=== PATIENT | male | born 1960 | race Hispanic/Latino ===

== ENCOUNTER 2020-10-30 09:28 | Emergency (ER) | payer SELFPAY ==
[2020-10-30 10:20] LABS: #Eosinphils 0.4 thou/uL (0.0-0.7); #Lymphocytes 1.4 thou/uL (1.20-3.40); #Monocytes 0.4 thou/uL (0.11-0.59); #Neutrophils 4.5 thou/uL (1.40-6.50); %Basophils 0.6 % (0.0-1.0); %Eosinophils 5.2 % (0.0-10.0); %Lymphocytes 20.7 % (21.0-51.0); %Monocytes 6.3 % (0.0-10.0); %Neutrophils 67.2 % (42.0-75.0); Hemoglobin 10.4 g/dL (14.0-18.0); Mean Corpuscular HGB CONC 31.8 g/dL (32.0-36.0); Mean Corpuscular Hemoglobin 30.8 pg (27.0-31.0); Mean Corpuscular Volume 96.7 fL (78.0-98.0); Platelet Count 249 thou/uL (130-400); RBC Distribution Width 13.7 % (11.5-14.5); Red Blood Cell (RBC) Count 3.37 mill/uL (4.70-6.10); White Blood Cell (WBC) Count 6.7 thou/uL (4.8-10.8)
[2020-10-30 10:39] LABS: ALT (SGPT) 20 U/L (8-55); AST (SGOT) 19 U/L (5-34); Albumin 3.1 g/dL (3.4-4.8); Alkaline Phosphatase 124 U/L (40-110); Anion Gap 12 mmol/L (10-20); BUN (Urea Nitrogen) 23 mg/dL (8.4-25.7); Bilirubin, Total 0.7 mg/dL (0.2-1.2); Calc. Creatinine Clearance 0 mL/min (70-130); Calcium 8.6 mg/dL (7.8-10.44); Carbon Dioxide 24 mmol/L (23-31); Chloride 105 mmol/L (98-107); Globulin 4.5 g/dL (2.4-3.5); Glucose 191 mg/dL (80-115); Potassium 4.9 mmol/L (3.5-5.1); Protein, Total 7.6 g/dL (5.8-8.1); Sodium 136 mmol/L (136-145)
[2020-10-30] MEDS ORDERED: Insulin Regular 300 UNITS/3 ML VIAL ONE (10:45)
[2020-10-30] MEDS ORDERED: Bacitracin 1 PK ONE (10:45)
== END 2020-10-30 11:30 | disposition home or self-care (01) ==
LOC: ERS 09:28
DX: S88.012A Complete traumatic amputation at knee level, left lower leg, initial encounter (principal); E11.9 Type 2 diabetes mellitus without complications; I10 Essential (primary) hypertension; Z79.4 Long term (current) use of insulin; Z79.82 Long term (current) use of aspirin; Z79.899 Other long term (current) drug therapy
CPT/HCPCS: 36415; 80053; 85025; 99283; J1815

== ENCOUNTER 2021-04-10 19:20 | Inpatient (IN) | payer SELFPAY ==
[2021-04-10 20:18] LABS: #Basophils 0.1 thou/uL (0.0-0.2); #Eosinphils 0.2 thou/uL (0.0-0.7); #Lymphocytes 1.8 thou/uL (1.20-3.40); #Monocytes 0.6 thou/uL (0.11-0.59); #Neutrophils 7.7 thou/uL (1.40-6.50); %Basophils 0.5 % (0.0-1.0); %Eosinophils 2.1 % (0.0-10.0); %Lymphocytes 17.7 % (21.0-51.0); %Monocytes 5.6 % (0.0-10.0); %Neutrophils 74.1 % (42.0-75.0); Hemoglobin 13.5 g/dL (14.0-18.0); Mean Corpuscular Hemoglobin 31.1 pg (27.0-31.0); Mean Corpuscular Volume 91.7 fL (78.0-98.0); Mean Platelet Volume 8.4 fL (7.4-10.4); Platelet Count 201 thou/uL (130-400); RBC Distribution Width 13.4 % (11.5-14.5); Red Blood Cell (RBC) Count 4.33 mill/uL (4.70-6.10); White Blood Cell (WBC) Count 10.4 thou/uL (4.8-10.8)
[2021-04-10 20:41] LABS: ALT (SGPT) 18 U/L (8-55); AST (SGOT) 17 U/L (5-34); Albumin 3.4 g/dL (3.4-4.8); Alkaline Phosphatase 82 U/L (40-110); Anion Gap 10 mmol/L (10-20); BUN (Urea Nitrogen) 20 mg/dL (8.4-25.7); Bilirubin, Total 1.4 mg/dL (0.2-1.2); CK (CPK) 187 U/L (30-200); Calc. Creatinine Clearance 0 mL/min (70-130); Calcium 9.2 mg/dL (7.8-10.44); Carbon Dioxide 27 mmol/L (23-31); Chloride 102 mmol/L (98-107); Globulin 3.4 g/dL (2.4-3.5); Glucose 319 mg/dL (80-115); Potassium 4.2 mmol/L (3.5-5.1); Protein, Total 6.8 g/dL (5.8-8.1); Sodium 135 mmol/L (136-145)
[2021-04-10 21:06] LABS: Bilirubin Negative (Negative); Blood, Urine Negative (Negative); Clarity Clear (Clear); Glucose, Urine (Dipstick) Greater than 1000 mg/dL (Negative); Ketone, Urine Negative (Negative); Leukocyte Negative Leu/uL (Negative); Nitrite Negative (Negative); Protein, Urine (Dipstick) 100 mg/dL (Neg-Trace); RBC/HPF 0-3 HPF (0-3); Specific Gravity, Urine 1.022 (1.002-1.036); Squamous Epithelial None Seen HPF (0-3); Urobilinogen Normal mg/dL (Less than 2); WBC/HPF 0-3 HPF (0-3)
[2021-04-10] MEDS ORDERED: Cefepime 2 GM VIAL ONE (21:16)
[2021-04-10 21:17] LABS: Bacteria/HPF 3+ HPF (None Seen)
[2021-04-10] MEDS ORDERED: Vancomycin 1 GM/200 ML BAG ONE (21:23)
[2021-04-10] MEDS ORDERED: Calcium Carbonate 500 MG ChewTAB PO PRN (22:11)
[2021-04-10] MEDS ORDERED: Senokot S 8.6-50 MG TAB PO PRN (22:11)
[2021-04-10] MEDS ORDERED: Acetaminophen 650 MG Suppository PR PRN (22:11)
[2021-04-10] MEDS ORDERED: Bisacodyl 5 MG TAB PO PRN (22:11)
[2021-04-10] MEDS ORDERED: Bisacodyl 10 MG SUPP PR PRN (22:11)
[2021-04-10] MEDS ORDERED: Dextrose 5% in Water 1,000 ML IV PRN (22:18)
[2021-04-10] MEDS ORDERED: Dextrose 50% Abboject 50 ML SYRINGE SLOW IVP PRN (22:18)
[2021-04-10] MEDS: HumaLOG 300 UNITS/3 ML VIAL SC PRN (23:14)
[2021-04-10] MEDS: Acetaminophen 325 MG TAB PO PRN (23:14)
[2021-04-11] MEDS ORDERED: Vancomycin 1 GM in Premix Bag 1 BAG IVPB SCH (01:30)
[2021-04-11 06:23] LABS: #Basophils 0.1 thou/uL (0.0-0.2); #Eosinphils 0.3 thou/uL (0.0-0.7); #Lymphocytes 1.4 thou/uL (1.20-3.40); #Monocytes 0.9 thou/uL (0.11-0.59); #Neutrophils 7.3 thou/uL (1.40-6.50); %Basophils 0.5 % (0.0-1.0); %Eosinophils 2.9 % (0.0-10.0); %Lymphocytes 14.5 % (21.0-51.0); %Monocytes 8.7 % (0.0-10.0); %Neutrophils 73.5 % (42.0-75.0); Hemoglobin 13.4 g/dL (14.0-18.0); Mean Corpuscular HGB CONC 33.6 g/dL (32.0-36.0); Mean Corpuscular Volume 92.4 fL (78.0-98.0); Mean Platelet Volume 8.2 fL (7.4-10.4); Platelet Count 194 thou/uL (130-400); RBC Distribution Width 13.4 % (11.5-14.5); Red Blood Cell (RBC) Count 4.33 mill/uL (4.70-6.10); White Blood Cell (WBC) Count 9.9 thou/uL (4.8-10.8)
[2021-04-11 06:40] LABS: Anion Gap 11 mmol/L (10-20); BUN (Urea Nitrogen) 14 mg/dL (8.4-25.7); Calc. Creatinine Clearance 130 mL/min (70-130); Calcium 8.8 mg/dL (7.8-10.44); Carbon Dioxide 26 mmol/L (23-31); Chloride 105 mmol/L (98-107); Glucose 200 mg/dL (80-115); Potassium 3.7 mmol/L (3.5-5.1); Sodium 138 mmol/L (136-145)
[2021-04-11 07:05] LABS: Hemoglobin A1c 9.6 % (4.0-6.0)
[2021-04-11] MEDS ORDERED: Iopamidol-370 76% 500 ML 1 ML ONE (08:50)
[2021-04-11] MEDS: Cefepime 2 GM in Sodium Chloride 0.9% 100 ML IVPB SCH ×2 (08:55→21:09)
[2021-04-11] MEDS: Enoxaparin Sodium 40 MG/0.4 ML SYRINGE SC SCH (08:55)
[2021-04-11] MEDS ORDERED: FLU VACC QS2021-22(6MOS UP)/PF 60 MCG/0.5 ML SYRINGE IM ONE (09:00)
[2021-04-11] MEDS: HumuLIN 70/30 (300 UNITS/3 ML VIAL) SC SCH ×2 (09:07→16:17)
[2021-04-11] MEDS: HumaLOG 300 UNITS/3 ML VIAL SC PRN ×2 (12:29→16:17)
[2021-04-11 13:38] VITALS: BMI 31.8
[2021-04-11 15:23] LABS: SARS-CoV-2 PCR by NAA Not Detected (NotDetected)
[2021-04-11] MEDS: Acetaminophen 325 MG TAB PO PRN (16:20)
[2021-04-12 06:48] LABS: #Basophils 0.1 thou/uL (0.0-0.2); #Eosinphils 0.3 thou/uL (0.0-0.7); #Lymphocytes 1.9 thou/uL (1.20-3.40); #Monocytes 0.8 thou/uL (0.11-0.59); #Neutrophils 6.9 thou/uL (1.40-6.50); %Basophils 0.6 % (0.0-1.0); %Eosinophils 3.2 % (0.0-10.0); %Lymphocytes 18.9 % (21.0-51.0); %Monocytes 7.6 % (0.0-10.0); %Neutrophils 69.7 % (42.0-75.0); Mean Corpuscular HGB CONC 33.6 g/dL (32.0-36.0); Mean Corpuscular Hemoglobin 31.1 pg (27.0-31.0); Mean Corpuscular Volume 92.6 fL (78.0-98.0); Mean Platelet Volume 8.1 fL (7.4-10.4); Platelet Count 189 thou/uL (130-400); RBC Distribution Width 13.3 % (11.5-14.5); Red Blood Cell (RBC) Count 4.18 mill/uL (4.70-6.10); White Blood Cell (WBC) Count 9.8 thou/uL (4.8-10.8)
[2021-04-12 07:13] LABS: Anion Gap 5 mmol/L (10-20); BUN (Urea Nitrogen) 14 mg/dL (8.4-25.7); Calc. Creatinine Clearance 133 mL/min (70-130); Calcium 8.9 mg/dL (7.8-10.44); Carbon Dioxide 30 mmol/L (23-31); Chloride 106 mmol/L (98-107); Glucose 152 mg/dL (80-115); Potassium 3.8 mmol/L (3.5-5.1); Sodium 137 mmol/L (136-145)
[2021-04-12] MEDS: HumuLIN 70/30 (300 UNITS/3 ML VIAL) SC SCH ×2 (09:11→17:38)
[2021-04-12] MEDS: Cefepime 2 GM in Sodium Chloride 0.9% 100 ML IVPB SCH (09:26)
[2021-04-12] MEDS: Enoxaparin Sodium 40 MG/0.4 ML SYRINGE SC SCH (09:27)
[2021-04-12 11:27] LABS: Vancomycin, Trough 14.4 ug/mL
[2021-04-12] MEDS: HumaLOG 300 UNITS/3 ML VIAL SC PRN (20:58)
[2021-04-13] MEDS: HumaLOG 300 UNITS/3 ML VIAL SC PRN (06:19)
[2021-04-13 07:07] LABS: #Basophils 0.1 thou/uL (0.0-0.2); #Eosinphils 0.3 thou/uL (0.0-0.7); #Lymphocytes 1.5 thou/uL (1.20-3.40); #Monocytes 0.6 thou/uL (0.11-0.59); #Neutrophils 6.2 thou/uL (1.40-6.50); %Basophils 0.7 % (0.0-1.0); %Eosinophils 3.4 % (0.0-10.0); %Lymphocytes 16.8 % (21.0-51.0); %Monocytes 7.4 % (0.0-10.0); %Neutrophils 71.7 % (42.0-75.0); Hemoglobin 13.3 g/dL (14.0-18.0); Mean Corpuscular HGB CONC 32.6 g/dL (32.0-36.0); Mean Corpuscular Hemoglobin 30.2 pg (27.0-31.0); Mean Corpuscular Volume 92.6 fL (78.0-98.0); Mean Platelet Volume 8.5 fL (7.4-10.4); Platelet Count 211 thou/uL (130-400); RBC Distribution Width 13.2 % (11.5-14.5); White Blood Cell (WBC) Count 8.7 thou/uL (4.8-10.8)
[2021-04-13 07:32] LABS: Anion Gap 12 mmol/L (10-20); BUN (Urea Nitrogen) 11 mg/dL (8.4-25.7); Calc. Creatinine Clearance 137 mL/min (70-130); Calcium 8.6 mg/dL (7.8-10.44); Carbon Dioxide 25 mmol/L (23-31); Chloride 104 mmol/L (98-107); Glucose 217 mg/dL (80-115); Potassium 4.1 mmol/L (3.5-5.1); Sodium 137 mmol/L (136-145)
[2021-04-13] MEDS: Enoxaparin Sodium 40 MG/0.4 ML SYRINGE SC SCH (09:20)
[2021-04-13] MEDS: HumuLIN 70/30 (300 UNITS/3 ML VIAL) SC SCH ×2 (09:21→18:29)
[2021-04-13] MEDS ORDERED: metFORMIN 500 MG TAB PO SCH ×2 (11:00→17:00)
[2021-04-13 18:32] VITALS: BP 136/83; TEMP 98
[2021-04-13] MEDS ORDERED: Sulfameth/Trimethoprim DS 800-160mg TAB PO SCH (21:00)
== END 2021-04-13 18:10 | disposition home or self-care (01) | DRG 638 ==
LOC: ERS 19:20 → T4-B 21:18 → INTOOBSV 21:18 → OBSVTOIN 04-11 14:57
PROVIDERS: ADMIT Emergency Medicine; ATTEND Emergency Medicine
DX: E11.628 Type 2 diabetes mellitus with other skin complications (principal); L03.115 Cellulitis of right lower limb; Z20.822 Contact with and (suspected) exposure to COVID-19; E11.65 Type 2 diabetes mellitus with hyperglycemia; E11.51 Type 2 diabetes mellitus with diabetic peripheral angiopathy without gangrene; I10 Essential (primary) hypertension; Z79.4 Long term (current) use of insulin; Z89.512 Acquired absence of left leg below knee
CPT/HCPCS: 36415; 36416; 75635; 80048; 80053; 80202; 81003; 81015; 82550; 83036; 83605; 83880; 85025; 85652; 86140; 87040; 87070; 87077; 87086; 87186; 87205; 93005; 96365; 96367; 96372; 96376; G0378; J0692; J1650; J1815; J3370; J3490; J7030; Q9967; U0003; U0005

== ENCOUNTER 2022-05-18 13:28 | Emergency (ER) | payer SELFPAY ==
[2022-05-18 14:10] LABS: #Eosinphils 0.2 thou/uL (0.0-0.7); #Lymphocytes 1.4 thou/uL (1.20-3.40); #Monocytes 0.4 thou/uL (0.11-0.59); #Neutrophils 3.9 thou/uL (1.40-6.50); %Basophils 0.2 % (0.0-1.0); %Eosinophils 3.6 % (0.0-10.0); %Lymphocytes 23.7 % (21.0-51.0); %Monocytes 6.8 % (0.0-10.0); %Neutrophils 65.8 % (42.0-75.0); Hemoglobin 13.1 g/dL (14.0-18.0); Mean Corpuscular HGB CONC 33.4 g/dL (32.0-36.0); Mean Corpuscular Hemoglobin 30.7 pg (27.0-31.0); Mean Corpuscular Volume 91.9 fl (78.0-98.0); Mean Platelet Volume 8.6 fL (7.4-10.4); Platelet Count 191 10x3/uL (130-400); RBC Distribution Width 12.5 % (11.5-14.5); Red Blood Cell (RBC) Count 4.27 mill/uL (4.70-6.10); White Blood Cell (WBC) Count 5.9 10x3/uL (4.8-10.8)
[2022-05-18 14:36] LABS: ALT (SGPT) 16 U/L (8-55); AST (SGOT) 19 U/L (5-34); Albumin 3.1 g/dL (3.4-4.8); Alkaline Phosphatase 78 U/L (40-110); Anion Gap 13 mmol/L (10-20); BUN (Urea Nitrogen) 16 mg/dL (8.4-25.7); Bilirubin, Total 1.5 mg/dL (0.2-1.2); Calc. Creatinine Clearance 0 mL/min (70-130); Calcium 8.3 mg/dL (7.8-10.44); Carbon Dioxide 21 mmol/L (23-31); Chloride 105 mmol/L (98-107); Estimated GFR 68; Glucose 334 mg/dL (80-115); Potassium 3.8 mmol/L (3.5-5.1); Protein, Total 7.1 g/dL (5.8-8.1); Sodium 135 mmol/L (136-145)
== END 2022-05-18 16:39 | disposition home or self-care (01) ==
LOC: ERS 13:28
DX: L03.115 Cellulitis of right lower limb (principal); E11.622 Type 2 diabetes mellitus with other skin ulcer; L97.819 Non-pressure chronic ulcer of other part of right lower leg with unspecified severity; I10 Essential (primary) hypertension; Z79.4 Long term (current) use of insulin
CPT/HCPCS: 36415; 80053; 83605; 85025; 87040; 99283

== ENCOUNTER 2023-05-16 00:49 | Emergency (ER) | payer OTHER, SELFPAY ==
[2023-05-16 03:08] LABS: #Eosinphils 0.5 thou/uL (0.0-0.7); #Monocytes 0.6 thou/uL (0.11-0.59); #Neutrophils 3.9 thou/uL (1.40-6.50); %Basophils 0.6 % (0.0-1.0); %Eosinophils 6.5 % (0.0-10.0); %Lymphocytes 26.7 % (21.0-51.0); %Monocytes 8.8 % (0.0-10.0); Hematocrit 35.6 % (42.0-52.0); Hemoglobin 11.9 g/dL (14.0-18.0); Mean Corpuscular HGB CONC 33.4 g/dL (32.0-36.0); Mean Corpuscular Hemoglobin 29.8 pg (27.0-31.0); Mean Corpuscular Volume 89.2 fl (78.0-98.0); Mean Platelet Volume 10.8 fL (7.4-10.4); Platelet Count 228 10x3/uL (130-400); Red Blood Cell (RBC) Count 3.99 mill/uL (4.70-6.10); White Blood Cell (WBC) Count 6.9 10x3/uL (4.8-10.8)
[2023-05-16 03:36] LABS: ALT (SGPT) 23 U/L (8-55); AST (SGOT) 25 U/L (5-34); Albumin 3.1 g/dL (3.4-4.8); Alkaline Phosphatase 94 U/L (40-110); Anion Gap 15 mmol/L (10-20); BUN (Urea Nitrogen) 18 mg/dL (8.4-25.7); Bilirubin, Total 0.7 mg/dL (0.2-1.2); Calc. Creatinine Clearance 0 mL/min (70-130); Carbon Dioxide 21 mmol/L (23-31); Chloride 105 mmol/L (98-107); Estimated GFR 58; Globulin 3.3 g/dL (2.4-3.5); Glucose 236 mg/dL (80-115); Potassium 3.6 mmol/L (3.5-5.1); Protein, Total 6.4 g/dL (5.8-8.1); Sodium 137 mmol/L (136-145)
[2023-05-16 03:37] LABS: Lipase 25 U/L (8-78); Magnesium 1.7 mg/dL (1.6-2.6)
[2023-05-16 05:01] LABS: Bacteria/HPF 4+ HPF (None Seen); Bilirubin Negative (Negative); Blood, Urine 1+ (Negative); CAUTI Indications for Culture Pelvic or flank pain; Clarity Turbid (Clear); Glucose, Urine (Dipstick) 300 mg/dL (Negative); Ketone, Urine Negative (Negative); Leukocyte 500 Leu/uL (Negative); Nitrite Negative (Negative); Protein, Urine (Dipstick) 300 mg/dL (Neg-Trace); RBC/HPF 0-3 HPF (0-3); Specific Gravity, Urine 1.009 (1.002-1.036); Squamous Epithelial None Seen HPF (0-3); WBC/HPF Greater than 50 HPF (0-3); pH, Urine 6.5 (5.0-9.0)
[2023-05-16 05:03] LABS: Urine Culture Reflex Yes Yes
[2023-05-16] MEDS ORDERED: Sodium Chloride 0.9% 100 ML ONE (05:15)
[2023-05-16] MEDS ORDERED: cefTRIAXone (ROCEPHIN) 1 GM VIAL ONE (05:15)
== END 2023-05-16 05:49 | disposition home or self-care (01) ==
LOC: ERS 00:49
DX: N30.00 Acute cystitis without hematuria (principal); R14.0 Abdominal distension (gaseous); E11.51 Type 2 diabetes mellitus with diabetic peripheral angiopathy without gangrene; I10 Essential (primary) hypertension
CPT/HCPCS: 36415; 71045; 74177; 80053; 81001; 83605; 83690; 83735; 83880; 84484; 85025; 87077; 87086; 93005; 96365; J0696; J3490

== ENCOUNTER 2024-11-24 14:39 | Inpatient (IN) | payer OTHER ==
[2024-11-24] MEDS ORDERED: Melatonin 3 MG TAB PO PRN (17:01)
[2024-11-24] MEDS ORDERED: Glucagon 1 MG/ML KIT IM PRN (17:35)
[2024-11-24] MEDS ORDERED: Dextrose 50% Abboject 50 ML SYRINGE SLOW IVP PRN (17:35)
[2024-11-24] MEDS: Acetaminophen 325 MG TAB PO SCH (17:57)
[2024-11-24] MEDS: hydrALAZINE 20 MG/ML VIAL SLOW IVP PRN (18:13)
[2024-11-24 18:17] LABS: Iron 41 ug/dL (65-175); Iron Binding Capacity, Total 254 mcg/dL (261-462)
[2024-11-24 18:18] LABS: Hep B Surf Ag NONREACTIVE S/CO (NonReactive); Hep C IgG Ab NONREACTIVE S/CO (NonReactive); Hep C Index 0.18 S/CO (0-0.79)
[2024-11-24 19:11] LABS: Ferritin 229.33 ng/mL (22-322)
[2024-11-24 20:36] VITALS: BMI 31.4
[2024-11-24] MEDS: Heparin 5,000 UNITS/ML VIAL SC SCH (21:09)
[2024-11-24 22:39] LABS: Bacteria/HPF None Seen HPF (None Seen); Glucose, Urine (Dipstick) 100 mg/dL (Negative); Leukocyte Negative Leu/uL (Negative); Protein, Urine (Dipstick) 100 mg/dL (Neg-Trace); RBC/HPF 0-3 HPF (0-3); Specific Gravity, Urine 1.012 (1.002-1.036); WBC/HPF 0-3 HPF (0-3)
[2024-11-24 23:13] LABS: Protein, Urine Random Quant 232.0 mg/dL (1-14)
[2024-11-24 23:53] LABS: Anion Gap 12 mmol/L (10-20); BUN (Urea Nitrogen) 45 mg/dL (8.4-25.7); Calc. Creatinine Clearance 29 mL/min (70-130); Calcium 7.8 mg/dL (7.8-10.44); Carbon Dioxide 22 mmol/L (23-31); Chloride 108 mmol/L (98-107); Glucose 120 mg/dL (80-115); Potassium 4.7 mmol/L (3.5-5.1); Sodium 137 mmol/L (136-145)
[2024-11-25 05:06] LABS: #Basophils 0.04 10x3/uL (0.0-0.2); #Eosinophils 0.45 10x3/uL (0.0-0.7); #Monocytes 0.45 10x3/uL (0.11-0.59); #Neutrophils 5.55 10x3/uL (1.40-6.50); %Basophils 0.5 % (0.0-1.0); %Eosinophils 5.5 % (0.0-10.0); %Lymphocytes 20.3 % (21.0-51.0); %Monocytes 5.5 % (0.0-10.0); %Neutrophils 67.5 % (42.0-75.0); Hematocrit 28.6 % (42.0-52.0); Hemoglobin 9.3 g/dL (14.0-18.0); Mean Corpuscular Hemoglobin 30.5 pg (27.0-31.0); Mean Corpuscular Volume 93.8 fL (78.0-98.0); Platelet Count 225 10x3/uL (130-400); Red Blood Cell (RBC) Count 3.05 mill/uL (4.70-6.10); White Blood Cell (WBC) Count 8.22 10x3/uL (4.8-10.8)
[2024-11-25 05:14] LABS: Albumin 3.0 g/dL (3.1-4.5); Anion Gap 14 mmol/L (10-20); BUN (Urea Nitrogen) 44 mg/dL (8.4-25.7); BUN/Creatinine Ratio 11.89; Calc. Creatinine Clearance 30 mL/min (70-130); Calcium 8.0 mg/dL (7.8-10.44); Carbon Dioxide 22 mmol/L (23-31); Chloride 108 mmol/L (98-107); Glucose 109 mg/dL (80-115); Potassium 4.8 mmol/L (3.5-5.1); Sodium 139 mmol/L (136-145)
[2024-11-25] MEDS: NIFEdipine XL 30 MG ER.TAB PO SCH ×2 (09:29→13:57)
[2024-11-25] MEDS: Insulin NPH Human Isophane 100 UNITS/ML (10 ML VIAL) SQ SCH (09:33)
[2024-11-25] MEDS: Aspirin 81 mg Enteric Coated Tablet PO SCH (09:34)
[2024-11-26 05:18] LABS: #Basophils 0.05 10x3/uL (0.0-0.2); #Eosinophils 0.45 10x3/uL (0.0-0.7); #Monocytes 0.50 10x3/uL (0.11-0.59); #Neutrophils 5.99 10x3/uL (1.40-6.50); %Basophils 0.6 % (0.0-1.0); %Eosinophils 5.3 % (0.0-10.0); %Lymphocytes 17.3 % (21.0-51.0); %Monocytes 5.9 % (0.0-10.0); %Neutrophils 70.5 % (42.0-75.0); Hematocrit 29.0 % (42.0-52.0); Hemoglobin 9.3 g/dL (14.0-18.0); Mean Corpuscular Hemoglobin 30.1 pg (27.0-31.0); Mean Corpuscular Volume 93.9 fL (78.0-98.0); Platelet Count 249 10x3/uL (130-400); Red Blood Cell (RBC) Count 3.09 mill/uL (4.70-6.10); White Blood Cell (WBC) Count 8.49 10x3/uL (4.8-10.8)
[2024-11-26 05:25] LABS: Anion Gap 13 mmol/L (10-20); BUN (Urea Nitrogen) 42 mg/dL (8.4-25.7); Calc. Creatinine Clearance 30 mL/min (70-130); Calcium 7.9 mg/dL (7.8-10.44); Carbon Dioxide 21 mmol/L (23-31); Chloride 110 mmol/L (98-107); Glucose 113 mg/dL (80-115); Potassium 4.6 mmol/L (3.5-5.1); Sodium 139 mmol/L (136-145)
[2024-11-26] MEDS: NIFEdipine XL 60 MG ER.TAB PO SCH (08:59)
[2024-11-26] MEDS: Calcitriol 0.25 MCG CAP PO SCH (08:59)
[2024-11-26 12:32] VITALS: BP 160/89; TEMP 98.9
[2024-11-27 12:35] LABS: ANA Symphony (Qualitative) Negative (Negative); ANA Symphony (Quantitative) 0.3 Ratio (< 0.7 Negative); dsDNA IgG Antibody 1.3 IU/mL (<10 Negative)
[2024-11-27 14:38] LABS: Albumin-Ur 60.9 % (.); Alpha 1 - Ur 5.1 % (.); Alpha 2 - Ur 5.9 % (.); Beta-Ur 12.9 % (.); Gamma-Ur 15.2 % (.); M-Spike,% Not Observed % (Not Observed); Protein, Urine 193.2 mg/dL (Not Estab.)
[2024-11-27 15:14] LABS: A/G Ratio 0.8 (0.7-1.7); Albumin 3.1 g/dL (2.9-4.4); Alpha 1 0.2 g/dL (0.0-0.4); Alpha 2 0.8 g/dL (0.4-1.0); Beta 1.0 g/dL (0.7-1.3); Gamma 1.8 g/dL (0.4-1.8); Globulin, Total 3.9 g/dL (2.2-3.9); M-Spike Not Observed g/dL (Not Observed)
[2024-11-30 13:38] LABS: Myeloperoxidase AutoAbs <0.2 units (0.0-0.9); Proteinase-3 AutoAbs Less than 0.2 units (0.0-0.9)
== END 2024-11-26 12:15 | disposition home or self-care (01) | DRG 684 ==
LOC: OBS 14:39 → MSONC 11-25 16:37
PROVIDERS: ADMIT Hospitalist; ATTEND Hospitalist
DX: N17.9 Acute kidney failure, unspecified (principal); E78.5 Hyperlipidemia, unspecified; E11.22 Type 2 diabetes mellitus with diabetic chronic kidney disease; N18.4 Chronic kidney disease, stage 4 (severe); I12.9 Hypertensive chronic kidney disease with stage 1 through stage 4 chronic kidney disease, or unspecified chronic kidney disease; Z79.82 Long term (current) use of aspirin; Z79.899 Other long term (current) drug therapy; M79.604 Pain in right leg; M79.89 Other specified soft tissue disorders; E87.5 Hyperkalemia; Z55.6 Problems related to health literacy
CPT/HCPCS: 36415; 36416; 76770; 80048; 80053; 80069; 81001; 82570; 82728; 82805; 83516; 83540; 83550; 83970; 84100; 84155; 84156; 84165; 84166; 85025; 86037; 86038; 86225; 86803; 87340; 93005; 96374; J0360; J1644; J1815; J7030

== ENCOUNTER 2024-12-28 14:02 | Emergency (ER) | payer OTHER ==
[2024-12-28 15:36] LABS: #Basophils 0.08 10x3/uL (0.0-0.2); #Eosinophils 2.46 10x3/uL (0.0-0.7); #Monocytes 0.68 10x3/uL (0.11-0.59); #Neutrophils 5.49 10x3/uL (1.40-6.50); %Basophils 0.8 % (0.0-1.0); %Eosinophils 24.1 % (0.0-10.0); %Lymphocytes 14.0 % (21.0-51.0); %Monocytes 6.7 % (0.0-10.0); %Neutrophils 53.8 % (42.0-75.0); Hematocrit 27.9 % (42.0-52.0); Hemoglobin 9.2 g/dL (14.0-18.0); Mean Corpuscular Hemoglobin 30.0 pg (27.0-31.0); Mean Corpuscular Volume 90.9 fL (78.0-98.0); Platelet Count 226 10x3/uL (130-400); Red Blood Cell (RBC) Count 3.07 mill/uL (4.70-6.10); White Blood Cell (WBC) Count 10.20 10x3/uL (4.8-10.8)
[2024-12-28 15:58] LABS: ALT (SGPT) 14 U/L (Less than 45); AST (SGOT) 21 U/L (11-34); Albumin 3.2 g/dL (3.1-4.5); Alkaline Phosphatase 86 U/L (40-110); Anion Gap 12 mmol/L (10-20); BUN (Urea Nitrogen) 52 mg/dL (8.4-25.7); Bilirubin, Total 0.2 mg/dL (0.3-1.2); Calc. Creatinine Clearance 0 mL/min (70-130); Calcium 8.5 mg/dL (7.8-10.44); Carbon Dioxide 24 mmol/L (23-31); Chloride 108 mmol/L (98-107); Globulin 4.1 g/dL (2.4-3.5); Glucose 137 mg/dL (80-115); Potassium 4.6 mmol/L (3.5-5.1); Sodium 139 mmol/L (136-145)
== END 2024-12-28 18:45 | disposition home or self-care (01) ==
LOC: ERS 14:02
DX: D64.9 Anemia, unspecified (principal); R29.701 NIHSS score 1; E11.22 Type 2 diabetes mellitus with diabetic chronic kidney disease; I12.9 Hypertensive chronic kidney disease with stage 1 through stage 4 chronic kidney disease, or unspecified chronic kidney disease; N18.6 End stage renal disease
CPT/HCPCS: 80053; 85025; 99283